=== PATIENT | male | born 2000 | race Two or more races ===

== ENCOUNTER 2018-09-01 14:37 | Emergency (ER) | payer SELFPAY ==
[~2018-09-01] VITALS: Ht 170.2 cm; Wt 65.8 kg
[2018-09-01] MEDS: fentaNYL PF VIAL 100 MCG/2 ML VIAL IV ONE ×2 (15:00→15:15)
--- NOTE | 2018-09-01 15:44 | PHYS DOC ---
Past Medical History Past Medical History: Other Additional Past Medical Histor: Lt shoulder dislocation Past Surgical History: No Surgical History Alcohol Use: Occasionally Drug Use: Marijuana Adult General Chief Complaint Chief Complaint: SHOULDER INJURY HPI HPI Patient is a 17 year old male who presents with a dislocated left shoulder. The patient states that he chronically dislocate the shoulder. He denies loss of sensation distal to the dislocation. He states that it dislocated today when he was raising his arm above his head. He denies any trauma. Review of Systems Review of Systems Constitutional: Denies fever or chills [] Respiratory: Denies cough or shortness of breath [] Cardiovascular: No additional information not addressed in HPI [] GI: Denies abdominal pain, nausea, vomiting, bloody stools or diarrhea [] : Denies dysuria or hematuria [] Musculoskeletal: See history of present illness Integument: Denies rash or skin lesions [] Neurologic: Denies headache, focal weakness or sensory changes [] Endocrine: Denies polyuria or polydipsia [] All other systems were reviewed and found to be within normal limits, except as documented in this note. Current Medications Current Medications Current Medications Medications (Trade) Dose Ordered Sig/Anna Start Time Stop Time Status Last Admin Dose Admin Fentanyl Citrate (Fentanyl 2ml Vial) 100 mcg 1X ONCE 09/01/18 15:15 09/01/18 15:19 DC 09/01/18 15:15 100 MCG Allergies Allergies Allergies Coded Allergies Type Severity Reaction Last Updated Verified No Known Drug Allergies 09/01/18 No Physical Exam Physical Exam Constitutional: Well developed, well nourished, no acute distress, non-toxic appearance. [] Cardiovascular:Heart rate regular rhythm, no murmur [] Lungs & Thorax: Bilateral breath sounds clear to auscultation [] Abdomen: Bowel sounds normal, soft, no tenderness, no masses, no pulsatile masses. [] Skin: Warm, dry, no erythema, no rash. [] Back: No tenderness, no CVA tenderness. [] Extremities: tenderness to left shoulder with palpation with evidence of a dislocation, no cyanosis, no clubbing, ROM decreased, no edema or ecchymosis, pulses and sensation are intact distal to injury. [] Neurologic: Alert and oriented X 3, normal motor function, normal sensory function, no focal deficits noted. [] Psychologic: Affect normal, judgement normal, mood normal. [] Current Patient Data Vital Signs Vital Signs Date Time Temp Pulse Resp B/P (MAP) Pulse Ox O2 Delivery O2 Flow Rate FiO2 09/01/18 15:15 15 98 Room Air 09/01/18 14:51 97.8 85 136/85 (102) 97.8 EKG EKG []See Dr. Barrera's note for the reduction. Radiology/Procedures Radiology/Procedures []PATIENT: YVONNE ASCENCIOOUNT: [id number]#: [id number] : 2000 LOCATION: ER AGE: 17 SEX: M EXAM STATUS: PRE ER ORD. PHYSICIAN: ZAIRE HELM APRN REASON: possible dislocation PROCEDURE: SHOULDER 2+V LEFT LEFT SHOULDER , 3 VIEWS Clinical Indication: patient said felt shoulder pop out of joint today. Comparison: None. Findings: There is no acute fracture or dislocation. The acromioclavicular and glenohumeral joints are intact. The visualized lung is clear. There is no evidence of a displaced rib fracture. There is no soft tissue abnormality. IMPRESSION: No acute fracture or dislocation. Electronically signed by: Raphael Hidalgo MD (09/01/2018 3:53 PM) [id number] DICTATED and SIGNED BY: RAPHAEL HIDALGO MD DATE: 09/01/18 1552 Course & Med Decision Making Course & Med Decision Making Pertinent Labs and Imaging studies reviewed. (See chart for details) []Upon x-ray the patient's arm is in place with no bony abnormality noted. The patient has been placed in a shoulder immobilizer and he is to follow-up with orthopedics. Dragon Disclaimer Dragon Disclaimer This electronic medical record was generated, in whole or in part, using a voice recognition dictation system. Departure Departure Impression: Primary Impression: Shoulder dislocation, recurrent Disposition: 01 HOME, SELF-CARE Condition: STABLE Referrals: CARLA KEITH II, MD Patient Instructions: Shoulder Dislocation Additional Instructions: You may take ibuprofen or Tylenol for pain if needed. Follow-up with orthopedics for evaluation of this chronic shoulder dislocation. If worsening return to the emergency department. You were given strong pain medication in the emergency department. Do not drive or operate heavy machinery for at least 8 hours. ZAIRE HELM APRN Sep 01, 2018 15:44
--- NOTE | 2018-09-01 15:56 | RAD ---
LEFT SHOULDER , 3 VIEWS Clinical Indication: patient said felt shoulder pop out of joint today. Comparison: None. Findings: There is no acute fracture or dislocation. The acromioclavicular and glenohumeral joints are intact. The visualized lung is clear. There is no evidence of a displaced rib fracture. There is no soft tissue abnormality. IMPRESSION: No acute fracture or dislocation. Electronically signed by: Raphael Hidalgo MD (09/01/2018 3:53 PM) [id number]
[2018-09-01 16:00] VITALS: BP 131/76
== END 2018-09-01 16:26 | disposition home or self-care (01) ==
LOC: ER 14:37
DX: M24.412 Recurrent dislocation, left shoulder (principal)
CPT/HCPCS: 73030; 96374; 99284; J3010